=== PATIENT | female | born 1970 ===

== ENCOUNTER 2022-01-02 16:13 | Outpatient (REF) | payer OTHER, SELFPAY ==
[2022-01-02 19:28] LABS: Albumin 4.1 g/dL (3.4-5.0); Anion Gap 8.5 mmol/L (3-11); BUN 16 mg/dL (7-18); CO2 27.5 mmol/L (21.0-32.0); Calcium 9.5 mg/dL (8.5-10.1); Chloride 105 mmol/L (98-107); Estimated GFR 68.63 (mL/min/1.73m2); Glucose 130 mg/dL (74-106); PHOSPHORUS 3.7 mg/dL (2.6-4.7); Potassium 3.7 mmol/L (3.5-5.1); Sodium 141 mmol/L (136-145)
[2022-01-02 19:35] LABS: COMMENT (LAB VIEW ONLY) 16.12 mg/dL
[2022-01-02 19:37] LABS: HCT 40.2 % (36.0-46.0); HGB 13.3 g/dL (11.2-15.7); MCH 29.8 pg (27.0-33.0); MCHC 33.1 % (32.0-36.0); MCV 90 fL (80-95); MPV 11.5 fL (8.0-11.0); Platelet Count 253 10^3/uL (130-400); RBC 4.47 10^6/uL (3.93-5.22); RDW 11.4 % (11.7-14.6); RDW-SD 37.4 fL; WBC 11.57 10^3/uL (4.4-10.8)
[2022-01-02 19:38] LABS: Bilirubin Negative (Negative); Blood Trace-intact (Negative); Clarity Clear (Clear); Glucose Negative (Negative); Ketones Negative (Negative); Leukocyte Esterase Negative (Negative); Nitrite Negative (Negative); PROTEIN < 6.0 mg/dL; Urobilinogen 0.2 EU/dL (Up TO 0.2)
[2022-01-02 19:42] LABS: Bacteria Negative HPF (Negative); Epithelial Cells Negative HPF (Negative); RBC 0-2 HPF (0-2); WBC Negative HPF (0-5)
[2022-01-02 19:43] LABS: C & S Indicated? No; Casts Negative LPF (Negative); Crystals Negative HPF (Negative); Mucus Negative (Negative)
[2022-01-05 09:35] LABS: Parathyroid Hormone,Intact 21 pg/mL (19-88)
== END 2022-01-02 16:14 | disposition home or self-care (01) ==
LOC: LBN 16:13
PROVIDERS: Visit Provider Internal Medicine Nephrology
DX: I10 Essential (primary) hypertension (principal)
CPT/HCPCS: 80069; 85027; 81003; 81015; 82565; 83970; 84156

== ENCOUNTER 2022-04-03 17:34 | Outpatient (REF) | payer BC, SELFPAY ==
[2022-04-03 19:50] LABS: ESR 42 mm/hr (0-20)
[2022-04-03 19:51] LABS: Abs Immature Grans 0.05 10^3/uL (0.0-0.06); Absolute Basophil Count 0.06 10^3/uL (0.0-0.2); Absolute Eosinophil Count 0.18 10^3/uL (0.0-0.7); Absolute Lymphocyte Count 2.83 10^3/uL (1.2-3.4); Absolute Monocyte Count 1.37 10^3/uL (0.1-0.8); Absolute Neutrophil Count 8.41 10^3/uL (1.2-6.7); Basophils % 0.5; Eosinophils % 1.4; HCT 40.4 % (36.0-46.0); HGB 13.5 g/dL (11.2-15.7); Immature Grans % 0.4; Lymphocytes % 21.9; MCHC 33.4 % (32.0-36.0); MCV 90 fL (80-95); MPV 11.2 fL (8.0-11.0); Monocytes % 10.6; Neutrophils % 65.2; Platelet Count 288 10^3/uL (130-400); RDW 11.5 % (11.7-14.6); RDW-SD 37.7 fL
== END 2022-04-03 17:35 | disposition home or self-care (01) ==
LOC: NCHCN 17:34
PROVIDERS: Visit Provider Physician Assistant Medical
DX: G50.1 Atypical facial pain (principal)
CPT/HCPCS: 85652; 85025

== ENCOUNTER 2022-06-17 12:15 | Outpatient (REF) | payer BC, SELFPAY ==
[2022-06-17 15:58] LABS: ESR 21 mm/hr (0-20)
[2022-06-17 15:59] LABS: Abs Immature Grans 0.02 10^3/uL (0.0-0.06); Absolute Basophil Count 0.07 10^3/uL (0.0-0.2); Absolute Eosinophil Count 0.23 10^3/uL (0.0-0.7); Absolute Lymphocyte Count 2.27 10^3/uL (1.2-3.4); Absolute Monocyte Count 0.98 10^3/uL (0.1-0.8); Absolute Neutrophil Count 6.59 10^3/uL (1.2-6.7); Basophils % 0.7; Eosinophils % 2.3; HCT 39.6 % (36.0-46.0); HGB 13.4 g/dL (11.2-15.7); Immature Grans % 0.2; Lymphocytes % 22.3; MCH 30.3 pg (27.0-33.0); MCHC 33.8 % (32.0-36.0); MCV 90 fL (80-95); MPV 11.3 fL (8.0-11.0); Monocytes % 9.6; Neutrophils % 64.9; Platelet Count 252 10^3/uL (130-400); RBC 4.42 10^6/uL (3.93-5.22); RDW 11.7 % (11.7-14.6); RDW-SD 38.2 fL; WBC 10.16 10^3/uL (4.4-10.8)
[2022-06-17 16:32] LABS: Iron 74 ug/dL (50-170); Total Iron Binding Capacity 336 ug/dL (250-450)
[2022-06-17 17:02] LABS: Vitamin D 25 Total 53.1 ng/mL (30-100)
[2022-06-17 17:09] LABS: ALT 33 U/L (14-59); AST 24 U/L (15-37); Alkaline Phosphatase 132 U/L (46-116); Anion Gap 8.7 mmol/L (3-11); BUN 15 mg/dL (7-18); Bilirubin, Total 0.5 mg/dL (0.2-1.0); CO2 27.3 mmol/L (21.0-32.0); CREATININE 0.9 mg/dL (0.55-1.02); Calcium 9.3 mg/dL (8.5-10.1); Chloride 104 mmol/L (98-107); Estimated GFR 77.88 (mL/min/1.73m2); Ferritin 83 ng/mL (8-252); Glucose 95 mg/dL (74-106); Magnesium 2.1 mg/dL (1.8-2.4); Potassium 4.3 mmol/L (3.5-5.1); Sodium 140 mmol/L (136-145); TSH 1.67 uIU/mL (0.36-3.74); Total Protein 8.1 g/dL (6.4-8.2); Vitamin B12 1317 pg/mL (193-986)
[2022-06-17 17:10] LABS: Folate > 20.0 ng/mL (8.6-20.0)
[2022-06-17 17:27] LABS: Creatine Kinase 65 U/L (26-192); FREE T4 1.26 ng/dL (0.76-1.46)
[2022-06-18 20:04] LABS: Rheumatoid Factor <8.6 IU/mL (<12.0)
[2022-06-18 20:20] LABS: T3,Free 4.9 pg/mL (2.8-5.3)
[2022-06-19 09:52] LABS: Hepatitis C Ab w Rflx HCV PCR Negative (Negative)
[2022-06-19 11:24] LABS: Syphilis Serology (RPR) Negative (Negative)
[2022-06-19 14:52] LABS: ANA Interpretation Positive (Negative); ANA Titer Pattern 1:160 Homogeneous
== END 2022-06-17 12:16 | disposition home or self-care (01) ==
LOC: LBN 12:15
PROVIDERS: Visit Provider Physical Medicine & Rehabilitation
DX: M79.10 Myalgia, unspecified site (principal); G47.9 Sleep disorder, unspecified; E61.1 Iron deficiency; E55.9 Vitamin D deficiency, unspecified; M89.9 Disorder of bone, unspecified
CPT/HCPCS: 80053; 82306; 82550; 85652; 86803; 82607; 82728; 82746; 83540; 83550; 83735; 84439; 84443; 84481; 85025; 86038; 86431; 86592

== ENCOUNTER 2022-06-22 01:03 | Outpatient (CLI) | payer BC, SELFPAY ==
--- NOTE | 2022-06-22 | DI.MRI_ITS ---
Exam(s) MR BRAIN WO/W EXAM: MR BRAIN WO/W CLINICAL HISTORY: [facility] BRAIN MRI R90.89 TECHNIQUE: Multiplanar multisequence MRI of the brain was performed. CONTRAST MATERIAL: IV Contrast: 20 mL of Dotarem contrast administered. COMPARISON: MR MRI Brain w/ + w/o Contrast from 05/22/2020 FINDINGS: VENTRICLES AND EXTRA AXIAL SPACES: Normal in size and morphology for the patient's age. HEMORRHAGE: None. CEREBRAL PARENCHYMA: No focus of restricted diffusion to suggest acute infarct. No space-occupying le ana identified. There again seen foci of hyperintense signal seen in the anterior right temporal lob e and in the right deep occipital parietal white matter. Neither of these lesions show enhancement f ollowing contrast administration. No new white matter lesions are identified. MIDLINE SHIFT: None. BRAINSTEM/CEREBELLUM: Normal. CALVARIUM: Normal. ENHANCEMENT: No suspicious enhancement identified. VISUALIZED PARANASAL SINUSES/MASTOIDS: Clear. [place]: Normal flow void. PIT[place]: Unremarkable. OTHER FINDINGS: IMPRESSION: Stable white matter lesions in the right temporal and right deep occipital parietal white matter. No new or enhancing lesions are identified. If there is persistent clinical concern for white matter d isease, follow-up in 6-12 months may be obtained. DATA REPOSITORY:
[2022-06-22] MEDS: Normal Saline Flush 10 ML SYR IVP (10:37)
[2022-06-22] MEDS: Gadoterate meglumine 20 ML VIAL IVP (10:37)
== END 2022-06-22 01:23 ==
PROVIDERS: Visit Provider Physician Assistant Medical
DX: R90.89 Other abnormal findings on diagnostic imaging of central nervous system (principal)
CPT/HCPCS: 70553

== ENCOUNTER 2023-01-08 17:40 | Outpatient (REF) | payer BC, SELFPAY ==
[2023-01-08 14:35] LABS: Abs Immature Grans 0.03 10^3/uL (0.0-0.06); Absolute Basophil Count 0.06 10^3/uL (0.0-0.2); Absolute Lymphocyte Count 2.12 10^3/uL (1.2-3.4); Absolute Monocyte Count 0.87 10^3/uL (0.1-0.8); Absolute Neutrophil Count 5.83 10^3/uL (1.2-6.7); Basophils % 0.7; Eosinophils % 2.2; HCT 40.8 % (36.0-46.0); HGB 14.2 g/dL (11.2-15.7); Immature Grans % 0.3; Lymphocytes % 23.3; MCH 30.8 pg (27.0-33.0); MCHC 34.8 % (32.0-36.0); MCV 89 fL (80-95); MPV 11.5 fL (8.0-11.0); Monocytes % 9.5; Platelet Count 275 10^3/uL (130-400); RBC 4.61 10^6/uL (3.93-5.22); RDW 11.4 % (11.7-14.6); RDW-SD 36.7 fL; WBC 9.11 10^3/uL (4.4-10.8)
[2023-01-08 14:50] LABS: ALT 34 U/L (14-59); AST 21 U/L (15-37); Albumin 4.3 g/dL (3.4-5.0); Alkaline Phosphatase 165 U/L (46-116); Anion Gap 10.1 mmol/L (3-11); BUN 14 mg/dL (7-18); Bilirubin, Total 0.6 mg/dL (0.2-1.0); CO2 26.9 mmol/L (21.0-32.0); CREATININE 0.8 mg/dL (0.55-1.02); Calcium 9.7 mg/dL (8.5-10.1); Calculated LDL 130 mg/dL (<100); Chloride 102 mmol/L (98-107); Cholesterol 216 mg/dL (<200); Estimated GFR 89.15 (mL/min/1.73m2); Glucose 107 mg/dL (74-106); HDL Cholesterol 53 mg/dL (40-60); Potassium 4.4 mmol/L (3.5-5.1); Sodium 139 mmol/L (136-145); TSH (W/Ref FT4) 2.69 uIU/mL (0.36-3.74); Triglyceride 168 mg/dL (<150)
== END 2023-01-08 17:41 | disposition home or self-care (01) ==
LOC: NCHCN 17:40
PROVIDERS: PCP Physician Assistant Medical; Visit Provider Physician Assistant Medical
DX: I10 Essential (primary) hypertension (principal); E87.6 Hypokalemia
CPT/HCPCS: 80053; 80061; 84443; 85025

== ENCOUNTER 2023-03-26 20:58 | Outpatient (REF) | payer BC, SELFPAY ==
[2023-03-26 19:32] LABS: Bilirubin Negative (Negative); Blood Trace-intact (Negative); Clarity Cloudy (Clear); Glucose Negative (Negative); Ketones Negative (Negative); Leukocyte Esterase Trace (Negative); Nitrite Negative (Negative); Specific Gravity >= 1.030 (1.005-1.025); Urobilinogen 0.2 mg/dL (Up to 0.2)
[2023-03-26 19:41] LABS: Bacteria Rare HPF (Negative); C & S Indicated? Yes; Casts Negative LPF (Negative); Crystals Moderate Amorphous HPF (Negative); Epithelial Cells Rare HPF (Negative); Mucus Negative (Negative)
[2023-03-26 20:04] LABS: COMMENT (LAB VIEW ONLY) 177.65 mg/dL; PROTEIN 13.1 mg/dL; Prot/Crea Ur Ratio 0.07
== END 2023-03-26 20:59 | disposition home or self-care (01) ==
LOC: LBN 20:58
PROVIDERS: PCP Physician Assistant Medical; Visit Provider Internal Medicine Nephrology
DX: I10 Essential (primary) hypertension (principal); R82.998 Other abnormal findings in urine
CPT/HCPCS: 81003; 81015; 82565; 84156; 87086

== ENCOUNTER 2023-11-03 18:58 | Outpatient (REF) | payer BC, SELFPAY ==
--- OUTSIDE RECORDS SUMMARY | 2023-11-03 19:04 | XMS_ITS | Data Portability ---
Author Organization [facility] [place] [address] Care Team Providers Care Filter Helper Name Role Phone JAN WARE Primary Care Provider Assessment No assessment recorded. Plan of Treatment Reminders Order Date Submit Date Provider Last Modified By Organization Details Last Modified Time Details Appointments Office Visit 30 2023 04:00P M Not available Not available Not available Lab None recorded. Referral chiroprac tor referral 2023 024 [email or web address] [facility], [address] [place], [address], 11/02/2023 14:08:20 nephrolog ist referral - LAST SEEN 03/19/232023 024 [email or web address] [facility], [address] , [facility] [address], [place], [address], 10/06/2023 14:09:17 Procedures None recorded. Surgeries None recorded. Imaging None recorded. Medication Orders sertralin e 50 mg tablet 2022 023 [email or web address] [facility], [address] [place], [address], 02/24/2023 18:21:14 furosemid e 20 mg tablet 2022 023 [email or web address] [facility], [address] [place], [address], 07/13/2023 13:42:56 Patient TargetsNo targets recorded. Patient Instructions Encounter Date Encounter Id Patient Instructions Last Modified By Organization Details Last Modified Time 03/26/2023 [id number] specimen collection & handling* [email or web address] Not available 03/26/2023 16:25:27 Reason for Referral Processing Lead Referral for Ch ronic kidney disease LAST SEEN 03/19/23 Referring Physician: Jan Ware [facility], Encounter Date: 03/31/2023 Chiropractor Referral for Ne ck pain Referring Physician: Jan Ware [facility], Encounter Date: 03/31/2023 Telesales Advisor Referral for A sthma PATIENT HAS APPT SCHEDULED 10/29/23 Referring Physician: Jan Waer [facility], Encounter Date: 10/06/2023 Results Created Date Observation Date Name Description Value Unit Range Abnormal Flag Note LastModifiedBy Organization Detail LastModifiedTime 03/26/19 24 03/26/2023 URINA LYSIS color Yellow yellow Testi ng perfo rmed on less than 5mL of urine , 3mL used for joleen sis. Not Available [address] [facility] [place], [address] 03/26/2023 19:41:53 03/26/1903/26/2023 URINA LYSIS clarity Cloudy clear Not Available Pedro rankin [address] [facility] [place], [address] 03/26/2023 19:41:53 03/26/1903/26/2023 URINA LYSIS specific gravity >= 1.030 1.005- 1.025 high Not Available [address] [place], [address] 03/26/2023 19:41:53 03/26/19 24 03/26/2023 URINA LYSIS pH 6.0 5-8 normal Not Available Pedro rankin [address] [place], [address] 03/26/2023 19:41:53 03/26/19 24 03/26/2023 URINA LYSIS leukocyte esterase Trace negati ve abnormal Not Available [address] [place], [address] 03/26/2023 19:41:53 03/26/19 24 03/26/2023 URINA LYSIS nitrite Negati ve negati ve Not Available [address] [place], [id number] 03/26/2023 19:41:53 03/26/19 24 03/26/2023 URINA LYSIS protein Negati ve mg/dL negati ve Not Available [address] [place], [id number] 03/26/2023 19:41:53 03/26/19 24 03/26/2023 URINA LYSIS glucose Negati ve mg/dL negati ve Not Available [address] [place], [id number] 03/26/2023 19:41:53 03/26/19 24 03/26/2023 URINA LYSIS ketones Negati ve mg/dL negati ve Not Available [address] [place], [id number] 03/26/2023 19:41:53 03/26/19 24 03/26/2023 URINA LYSIS urobilinogen 0.2 mg/dL up to 0.2 Not Available [address] [place], [id number] 03/26/2023 19:41:53 03/26/19 24 03/26/2023 URINA LYSIS bilirubin Negati ve negati ve Not Available [address] [place], [id number] 03/26/2023 19:41:53 03/26/19 24 03/26/2023 URINA LYSIS blood Trace- intact negati ve abnormal Not Available [address] [place], [id number] 03/26/2023 19:41:53 03/26/19 24 03/26/2023 URINA LYSIS color Yellow yellow Testi ng perfo rmed on less than 5mL of urine , 3mL used for joleen sis. Not Available [address] [place], [id number] 03/26/2023 19:42:49 03/26/19 24 03/26/2023 URINA LYSIS clarity Cloudy clear Not Available Pedro rankin [address] [place], [id number] 03/26/2023 19:42:49 03/26/1903/26/2023 URINA LYSIS specific gravity >= 1.030 1.005- 1.025 high Not Available [address] [place], [address] 03/26/2023 19:42:49 03/26/19 24 03/26/2023 URINA LYSIS pH 6.0 5-8 normal Not Available Pedro rankin [address] [place], [id number] 03/26/2023 19:42:49 03/26/19 24 03/26/2023 URINA LYSIS leukocyte esterase Trace negati ve abnormal Not Available [address] [place], [id number] 03/26/2023 19:42:49 03/26/19 24 03/26/2023 URINA LYSIS nitrite Negati ve negati ve Not Available [address] [place], [address] 03/26/2023 19:42:49 03/26/19 24 03/26/2023 URINA LYSIS protein Negati ve mg/dL negati ve Not Available [address] [place], [address] 03/26/2023 19:42:49 03/26/19 24 03/26/2023 URINA LYSIS glucose Negati ve mg/dL negati ve Not Available [address] [place], [id number] 03/26/2023 19:42:49 03/26/19 24 03/26/2023 URINA LYSIS ketones Negati ve mg/dL negati ve Not Available [address] [place], [id number] 03/26/2023 19:42:49 03/26/19 24 03/26/2023 URINA LYSIS urobilinogen 0.2 mg/dL up to 0.2 Not Available [address] [place], [id number] 03/26/2023 19:42:49 03/26/19 03/26/2023 URINA LYSIS bilirubin Negati ve negati ve Not Available [address] [place], [id number] 03/26/2023 19:42:49 03/26/19 24 03/26/2023 URINA LYSIS blood Trace- intact negati ve abnormal Not Available [address] [place], [id number] 03/26/2023 19:42:49 03/26/19 24 03/26/2023 MICRO SCOPI C FINDI NGS WBC 3-5 hpf 0-5 Not Available Pedro rankin [address] [place], [id number] 03/26/2023 19:42:50 03/26/19 24 03/26/2023 MICRO SCOPI C FINDI NGS RBC 3-5 hpf 0-2 abnormal Not Available [address] [place], [id number] 03/26/2023 19:42:50 03/26/19 24 03/26/2023 MICRO SCOPI C FINDI NGS epithelial cells Rare hpf negati ve Not Available [address] [place], [id number] 03/26/2023 19:42:50 03/26/19 24 03/26/2023 MICRO SCOPI C FINDI NGS bacteria Rare hpf negati ve Not Available [address] [place], [id number] 03/26/2023 19:42:50 03/26/19 24 03/26/2023 MICRO SCOPI C FINDI NGS crystals Modera te Amorph ous hpf negati ve Not Available [address] [place], [id number] 03/26/2023 19:42:50 03/26/19 24 03/26/2023 MICRO SCOPI C FINDI NGS mucus Negati ve negati ve Not Available [address] [place], [id number] 03/26/2023 19:42:50 03/26/19 24 03/26/2023 MICRO SCOPI C FINDI NGS casts Negati ve lpf negati ve Not Available [address] [place], [id number] 03/26/2023 19:42:50 03/26/19 24 03/26/2023 MICRO SCOPI C FINDI NGS C S indicated? Yes Not Available [address] [place], [address] 03/26/2023 19:42:50 03/26/19 24 03/26/2023 PROTE IN/CR EATIN INE URINE protein urine 13.1 mg/dL Not Available [address] [place], [address] 03/26/2023 20:06:58 03/26/19 24 03/26/2023 PROTE IN/CR EATIN INE URINE creatinine urine 177.65 mg/dL Not Available [address] [place], [address] 03/26/2023 20:06:58 03/26/19 24 03/26/2023 PROTE IN/CR EATIN INE URINE prot/crea ur ratio 0.07 Urine Prote in/Cr eatin ine Ratio Refer ence Range : <0.2 mg Prote in/mg Creat inine Not Available [address] [place], [address] 03/26/2023 20:06:58 03/26/19 24 03/28/2023 URINE CULTU RE urine culture Urine Cultu re Proba ble conta minat ed colle ction . APPEA AMOS Mixed Gram Posit skye Julieta APPEA AMOS Mixed Gram Posit skye Julieta COLON Y COUNT Not Available [address] [place], [address] 03/28/2023 09:10:47 03/26/19 24 03/28/2023 URINE CULTU RE urine culture colon ies/m L 10,00 0 - 50,00 0 COLON Y COUNT 10,00 0 - 50,00 0 Day 1 Resul t ISOLA CIERA BELOW Day 2 Resul t ISOLA CIERA BELOW O:GPF M (ORGA NISM ID: 1.1) - GRAM POSIT SKYE JULIETA ,MIXE D Urine Cultu re (ORGA NISM ID: 1.1) - COLON Y COUNT (ORGA NISM ID: 1.1) - 10,00 0 - 50,[address] [facility] [address] [place], [address] 03/28/2023 09:10:47 03/26/19 24 03/26/2023 speci men colle ction & handl ing* Specimen collection and handling performed today: Yes Not Available [facility] [address] [place], [address], 03/26/2023 16:00:13 03/26/19 24 03/26/2023 speci men colle ction & handl ing* Comments: Urine for urinal ysis from outsid e provid er Not Available [facility] [address] [place], [address], 03/26/2023 16:00:13 Result Notes None recorded. Problems Name Problem SNOMED Code Status Onset Date Resolution Date Notes Provider Name and Address Organization Details Recorded Time Actinic keratosi s Active 2021 Problem Code: L57.0; Problem Code Type: ICD-10; Not Available [facility] 3 05:50:44 Peripher al vascular disease 771349112 Active 2021 Problem Code: I73.9; Problem Code Type: ICD-10; Not Available [facility] 3 05:50:44 Seasonal allergic rhinitis 323987025 Active 2021 Problem Code: J30.2; Problem Code Type: ICD-10; Not Available [facility] 3 05:50:44 Trochant carla bursitis of left hip 66929865300 9103 Active 2021 Problem Code: M70.62; Problem Code Type: ICD-10; Not Available [facility] 3 05:50:45 History of infectio us disease 179829601 Active 202105/19/19 23 - Comments only - Jan Ware PA-C - Given patient concerns for reactiva tion of chronic lyme, will initiate refer to Az Zimmerman for manageme nt. In the interim, will trial RXd MELOXICA M 7.5mg BID (h/o hives as ASE NAPROXEN , h/o GI upset with IBUPROFE N). Problem Code: Z86.19; Problem Code Type: ICD-10; Not Available [facility] 3 05:50:45 Lateral epicondy litis of left humerus 89630803190 9100 Active 2021 Problem Code: M77.12; Problem Code Type: ICD-10; Not Available [facility] 3 05:50:45 Uncompli cated moderate persiste nt asthma 402007253 Active 202102/18/20 22 - Comments only - Jan Ware PA-C - Matained on ADVAIR HFA, ?SINGULA IR 5mg QD, and XOPENEX MDI vs via nebulize r PRN as rescue. Problem Code: J45.40; Problem Code Type: ICD-10; Not Available [facility] 3 05:50:45 Tendonit is of right patellar tendon 54973373953 9109 Active 2021 Problem Code: M76.51; Problem Code Type: ICD-10; Not Available [facility] 3 05:50:45 Verruca plantari s 05689491 Active 2021 Problem Code: B07.0; Problem Code Type: ICD-10; Not Available [facility] 3 05:50:46 Iliopsoa s abscess 457953131 Active 2021 Problem Code: K68.12; Problem Code Type: ICD-10; Not Available [facility] 3 05:50:46 Abnormal weight gain 350671697 Active 2021 Problem Code: R63.5; Problem Code Type: ICD-10; Not Available [facility] 3 05:50:46 Hypokale inocencio 95079474 Active 2021 Problem Code: E87.6; Problem Code Type: ICD-10; Not Available [facility] 3 05:50:46 Palpitat ions 09559925 Active 2021 Problem Code: R00.2; Problem Code Type: ICD-10; Not Available [facility] 3 05:50:46 Vitamin D deficien cy 63847881 Active 2021 Problem Code: E55.9; Problem Code Type: ICD-10; Not Available [facility] 3 05:50:46 Screenin g for malignan t neoplasm of colon Active 2021 Problem Code: Z12.11; Problem Code Type: ICD-10; Not Available [facility] 3 05:50:47 Counseli fatemeh Completed 202103/02/2022 02/18/20 22 - Comments only - Jan Ware PA-C - Old records from previous provider reviewed and flagged for chart updating . Problem Code: Z71.89; Problem Code Type: ICD-10; Not Available [facility] 3 05:50:47 Atypical facial pain 77872259 Completed 202204/17/2022 Problem Code: G50.1; Problem Code Type: ICD-10; Not Available [facility] 3 05:50:47 Neck pain 93505188 Active 2022 Problem Code: M54.2; Problem Code Type: ICD-10; Not Available [facility] 3 05:50:47 Imaging of central nervous system abnormal 08928521518 409302 Active 202205/19/19 23 - Comments only - Jan Ware PA-C - Given recent issues with memory, and right sided PRAJAPATI/scalp sensitiv ity, will arrange for repeat MRI @ [facility] at next availabl e. Problem Code: R90.89; Problem Code Type: ICD-10; Not Available [facility] 3 05:50:47 Amnesia 62207058 Completed 202205/29/2022 Problem Code: R41.3; Problem Code Type: ICD-10; Not Available [facility] 3 05:50:48 Insomnia 399497542 Active 202205/19/19 23 - Comments only - Jan Ware PA-C - Patient agrees to trial OTC BENADRYL QHS to target sleep maintena nce issues. Addition ally, in an effort to minimize potentia l for daytime sedation , will switch dosing of ZOLOFT 25mg to PMS. Problem Code: G47.00; Problem Code Type: ICD-10; Not Available [facility] 3 05:50:48 Essentia l hyperten ana 86817544 Active 202102/18/20 22 - Comments only - Jan Ware PA-C - Today's BP stable on BYSTOLIC 2.5mg QD, CLONIDIN E ER 0.1mg in AM and 0.2mg QHS, and EPLERENO NE 25mg QD. Problem Code: I10; Problem Code Type: ICD-10; Not Available [facility] 3 05:51:07 Chalazio n of left eyelid 19202634276 9107 Active 202101/05/20 22 - Comments only - Kaitlynn Sauceda MD - Given the sensatio n of increasi ng irritati on, she has already been trying warm compress es, will trial TobraDex . If not improvin g in the next few days she will let me know. Problem Code: H00.16; Problem Code Type: ICD-10; Not Available [facility] 3 05:51:07 Adjustme nt disorder 58534764 Active 202102/18/20 22 - Comments only - Jan Ware PA-C - Supporti ve listenin g provided today. Patient to continue on ZOLOFT 25mg QD as RXd. She agrees to give some thought towards initiati on of counseli fatemeh supports through [facility] provider in new year. Problem Code: F43.20; Problem Code Type: ICD-10; Not Available [facility] 3 05:51:07 Chronic kidney disease 732474707 Active [address], [place], [address] , [facility]. 4 13:05:33 Asthma 760008610 Active 2023 KAYKAY BLAIR MA [facility], [place] - [facility] 4 14:00:06 Problem Notes None recorded. Procedures Surgical History Date Name Laterality Status Provider Name and Address Organization Details Recorded Time 2 Most Recent Mammogram completed KAYKAY BLAIR MA ramon [facility] 02/24/2023 12:15:34 2 Date of Last Mammogram completed KAYKAY BLAIR MA ramon [facility] 02/24/2023 12:17:07 Imaging Results None recorded. Procedure Notes None recorded. Medical Equipment None Reported. Allergies Allergen ID Allergen Name Allergen Category Reaction Reaction Severity Criticality Documentation Date Start Date Code Code System Note Provider Name and Address Organization Details Recorded Time Biaxin medicatio n other mild Not available 01/08/2023202172 9 RxNorm unkno wn Aller gyRea ction : 'unkn own'; Not Available [facility] 3 16:11:20 23518 Claritin medicatio n hives severe Not available 01/08/20232021 74826 6 RxNorm hives Not Available [facility] 3 16:11:20 47884 Zyrtec medicatio n hives severe Not available 01/08/20232021 33994 RxNorm hives Aller gyCod e: '0004 01800 24'; Aller gyNam e: 'ZYRT EC'; Aller gyCon ceptT ype: 'NDC' ; Not Available [facility] 3 16:11:21 Medications Name Sig Start Date Stop Date Status Note LastModified by Organization Details LastModified Time amoxicill in 500 mg capsule 02/24 completed Not Available Not Available Not Available monteluka st 5 mg chewable tablet Take 1/2 tablet by mouth once a day as needed active Not Available Not Available No t Available clotrimaz ole 10 mg dev Hold 1 dev in mouth five times a day 04/21 completed Not Available Not Available Not Available clonidine HCl 0.1 mg tablet 11/13 completed Not Available Not Available Not Available Medrol (Kemal) 4 mg tablets in a dose pack Take by mouth as directed followin g package instruct ions. Take with food. 04/13 completed Not Available Not Available Not Available nystatin 500,000 unit tablet TAKE TWO TABLETS BY MOUTH THREE TIMES DAILY OR DIRECTED active Not Available Not Available No t Available TobraDex 0.3 %-0.1 % eye ointment Apply to left lower lid 3-4 times a day for 5-7 days 02/16 completed Not Available Not Available Not Available Xopenex 0.63 mg/3 mL solution for nebulizat ion Inhale 1 vial using nebulize r four times a day as needed for asthma exacerba tion 07/12 completed Not Available Not Available Not Available meloxicam 7.5 mg tablet TAKE ONE TABLET BY MOUTH TWICE A DAY 2023 active Not Available Not Available Not Avai lable doxycycli ne monohydra te 50 mg capsule 1 PO BID 07/12 completed Not Available Not Available Not Available Valtrex 1 gram tablet Take 1 tablet by mouth three times a day 02/24 completed Not Available Not Available Not Available sertralin e 25 mg tablet TAKE ONE TABLET BY MOUTH ONCE DAILY 02/24 completed Not Available Not Available Not Available amoxicill in 250 mg capsule Take 1 capsule every other day by oral route with meal(s). active Az Zimmerman MD, Take w/ breakfas t Wed. Wed. Wednesday Not Available Not Available Not Available lisinopri l 5 mg tablet take 1/2 tablet by mouth daily for 2 days. okay to increase to a full tablet daily if at home blood pressure readings still elevated 11/02 completed cramping Not Available Not Available Not Available furosemid e 20 mg tablet Take 1 tablet by mouth once daily active PRN Not Available Not Available No t Available levalbute rol 1.25 mg/3 mL solution for nebulizat ion Use 1 Via Nebulize r 4 times a day as needed 2023 active Not Available Not Available Not Avai lable sertralin e 50 mg tablet Take 1 tablet every day by oral route at bedtime. active Not Available Not Available No t Available eplerenon e 25 mg tablet Take 1 tablet by mouth twice a day 2023 active Not Available Not Available Not Avai lable cyclobenz aprine 5 mg tablet Take 1-2 tablet by mouth twice a day as needed FOR NECK PAIN active Not Available Not Available No t Available levalbute rol HFA 45 mcg/actua tion aerosol inhaler Inhale 1-2 puff using inhaler every four hours as needed for asthma flare active Not Available Not Available No t Available doxycycli ne monohydra te 50mg tid 11/02 completed brand Lupmisael pharmama naged by Az Zimmerman MD Not Available Not Available Not Available Advair HFA 115 mcg-21 mcg/actua tion aerosol inhaler Inhale 1 puff by mouth three times daily as needed 2022 active Not Available Not Available Not Avai lable nebivolol 2.5 mg tablet Take 1 tablet by mouth every night 2023 active Not Available Not Available Not Avai lable Probiotic 100 billion count once a day active Not Available Not Available No t Available clonidine HCl ER 0.1 mg tablet,ex tended release,1 2 hr Take 2 tablet by mouth twice a day 1 in AM, 2 in PM active Not Available Not Available No t Available Spiriva Respimat 2.5 mcg/actua tion solution for inhalatio n active Not Available Not Available Not Available Children' s Benadryl Allergy 12.5 mg chewable tablet Take 1 tablet by mouth once a day as needed active Not Available Not Available No t Available Vitals Date Recorded Body height Body mass index (BMI) Body weight Oxygen saturation Oxygen saturation in Arterial blood by Pulse oximetry Heart rate Systolic blood pressure Diastolic blood pressure Provider Name and Address Organization Details Last Updated DateTime 3 173.710 6 cm 33.7 kg/m2 227461. 39 g 96 % 96 % 90 /min 152 mm[Hg] 80 mm[Hg] KAYKAY BLAIR MA [facility]. 3 17:13:10 Date Recorded Body height Body mass index (BMI) Body weight Oxygen saturation Oxygen saturation in Arterial blood by Pulse oximetry Heart rate Systolic blood pressure Diastolic blood pressure Provider Name and Address Organization Details Last Updated DateTime 4 173.710 6 cm 33.7 kg/m2 440833. 69 g 99 % 99 % 64 /min 138 mm[Hg] 72 mm[Hg] KAYKAY BLAIR MA [facility] 4 17:25:26 Date Recorded Body height Body mass index (BMI) Body weight Heart rate Oxygen saturation Oxygen saturation in Arterial blood by Pulse oximetry Systolic blood pressure Diastolic blood pressure Provider Name and Address Organization Details Last Updated DateTime 4 173.710 6 cm 33.9 kg/m2 038403. 44 g 76 /min 99 % 99 % 122 mm[Hg] 74 mm[Hg] Sudha savage ACID REMOVER [facility] 4 13:39:57 Date Recorded Body height Body mass index (BMI) Body weight Oxygen saturation Oxygen saturation in Arterial blood by Pulse oximetry Heart rate Systolic blood pressure Diastolic blood pressure Provider Name and Address Organization Details Last Updated DateTime 4 175.26 cm 34.6 kg/m2 124940. 71 g 97 % 97 % 84 /min 158 mm[Hg] 81 mm[Hg] LEAH BALL LPN [facility] 4 16:26:30 Social History Question Answer Notes LastModified by Organizat ion Details LastModified Time Tobacco Smoking Status Never Smoker JAMI BISHOP, [facility] 02/24/2023 17:05:57 Do You Or Have You Ever Used Any Other Forms Of Tobacco Or Nicotine? No [email or web address] Information not available 02/24/2023 Sex: Female Functional Status None recorded. Mental Status None recorded. Family History Relationship Description Onset Age of this Age Resolved Age Notes Sister Family history of Hypertension Sister Family history of acute medical disorder ? Celiac artey condition Sister Family history of disorder of lung Father Family history of acute medical disorder CABG/ AVR aroudn age 70 Father Family history of diabetes mellitus type 1 Maternal Grandmother Family history of cancer of colon Mother Family history of malignant neoplasm of lung Mother Family history of heart failure Cardiomyopathy Paternal Grandfather Family history of malignant neoplasm of lung Sister Malignant neoplasm of female breast Medical History No medical history recorded. Gynecological History Statement/Question Response Date of Last Pap Smear Date of Last Mammogram 08/19/2021 Most Recent Mammogram 08/19/2021 Obstetrics History GPAL:G 0 P 0 0 0 0 Past Encounters Encounter ID Performer Location Encounter Start Date Encounter Closed Date Diagnosis/Indication Diagnosis SNOMED-CT Code Diagnosis ICD10 Code [id number] JAN WARE PA-C [facility] [address] [address] 02/24/2023 16:24:31 02/24/2023 18:34:03 Adjustment disorder 49033774 F43.20 Edema 287260721 R60.9 Adult heal th examination 823573363 Z00.00 History of Lyme disease 368581809 Z86.19 Essential hypertension 01034825 I10 N18.9 Asthma 679375351 J45.90 9 [id number] Ubaldo Iglesias MA [address] [address] 03/26/2023 15:43:16 03/26/2023 15:57:52 Adult health examination 853535634 Z00.00 [id number] JAN WARE PA-C [address] [address] 03/31/2023 17:06:19 03/31/2023 18:11:33 Essential hypertension 60013917 I10 Neck pain 09252761 M54.2 Chronic ki dney disease 735940974 N18.9 Adjustment disorder 1722 6007 F43.20 History of infectious disease 982876658 Z86.19 [id number] JAN WARE PA-C [address] [address] 07/13/2023 13:08:01 07/13/2023 15:44:32 Essential hypertension 83493606 I10 [id number] Skylar Miguel [address] [address] 11/03/2023 15:34:17 11/03/2023 17:25:15 Tachycardia 2180678 R00.0 Essential hypertension 00409335 I10 Health Concerns Section Related Observation LastModified by Organization Detai ls LastModified Time None Recorded Concern Status LastModified by Organization Details LastModified Time None Recorded Advance Directives Directive None Recorded Payers Encounter Date Sequence Insurance Name Policy Number Policy Fraga Covered Member ID Fraga Member ID Guarantor Name 02/24/2023 1 [place] [facility] [id number] Sharon Wing [id number] Sharon Wing 03/26/2023 1 [place] [facility] [id number] Sharon Wing [id number] Sharon Wing 03/31/2023 1 [place] [facility] [id number] Sharon Wing [id number] Sharon Wing 07/13/2023 1 [place] [facility] [id number] Sharon Wing [id number] Sharon Wing Notes Date Note Type Note Provider Name and Address Organization Details Recorded Time 02/24/2023 text/html HPI Notes: 52y/o female presenting for annual health maintenance exam. [address], [place], [address], [facility] 05/10/2023 21:08:48 03/31/2023 text/html HPI Notes: 52y/o female presenting for 1m f/u edema and anxiety/depression. On presentation today, Sharon reports extremity edema improved on LASIX. Currently using PRN (required to dose x 2 last week). Still awakening in AMs with some degree of hand swelling, however, ankles/shins OK. Additionally, reports mood improved with increase in ZOLOFT as RXd at time of last month's AE. [address], [place], [address], [facility]. 04/02/2023 13:28:27 07/13/2023 text/html HPI Notes: 52y/o female presenting with c/o elevated BP. Sharon reports that yesterday she found BP readings running atypically high (182/101 at first waking; 179/98 upon arrival at work). Today slightly improved, however, still not at normal levels (159/75 with pulse in 60s; 165/94 after completing a few patient visits at work). Face feels flushed with these elevations. Admits mild PRAJAPATI yesterday and some level of lightheadedness today. No syncope. [address], [place], [address], [facility]. 07/13/2023 16:05:30 OBGyn Episode No OBEpisode recorded.
--- OUTSIDE RECORDS SUMMARY | 2023-11-03 19:04 | XMS_ITS | Referral Summary ---
Author Organization [facility] Address [address] [place] [id number] Care Team Providers Care Machine Design Engineer Name Role Phone Unavailable Primary Care Provider Unavailabl e Social History Tobacco Use Types Packs/Day Years Used Date Smoking Tobacco: Never Assessed Sex and Gender Information Value Date Recorded Sex Assigned at Not on file Gender Identity Not on file Sexual Orientation Not on file Plan of Treatment Not on file Procedures Procedure Name Priority Date/Time Associated Diagnosis Comments HEPATITIS C AB W REFLEX TO HCV RNA BY PCR Today 06/17/2022 10:30 EDT from Last 3 Months or Most Recently Relevant to Health Maintenance Results * HEPATITIS C AB W REFLEX TO HCV RNA BY PCR (06/17/2022 10:30 EDT) Hep C Antibody Negative Negative 06/19/2022 9:47 EDT [facility] Blood VENOUS BLOOD / Unknown 06/17/2022 10:30 EDT 06/18/2022 19:15 EDT Provider Outr Resulting Lab CHEMISTRY & BLOOD GAS ORDERABLES [facility] [address] [place] [address] from Last 3 Months or Most Recently Relevant to Health Maintenance
--- OUTSIDE RECORDS SUMMARY | 2023-11-03 19:04 | XMS_ITS | Clinical Summary ---
Author Organization [facility] Address [address] [place] [address] Care Team Providers Care Cath Lab Name Role Phone Unavailable Primary Care Provider Unavailabl e Social History Tobacco Use Types Packs/Day Years Used Date Smoking Tobacco: Never Assessed Sex and Gender Information Value Date Recorded Sex Assigned at Not on file Gender Identity Not on file Sexual Orientation Not on file Plan of Treatment Health Maintenance Due Date Last Done Comments Hepatitis B Vaccine (1 of 3 - 19+ 3-dose series) 09/01 COVID-19 Vaccine (2022-24 season) 2023 Hepatitis C Screen Completed 06/17/2022 Procedures Procedure Name Priority Date/Time Associated Diagnosis Comments HEPATITIS C AB W REFLEX TO HCV RNA BY PCR Today 06/17/2022 10:30 EDT from Last 3 Months or Most Recently Relevant to Health Maintenance Results * HEPATITIS C AB W REFLEX TO HCV RNA BY PCR (06/17/2022 10:30 EDT) Hep C Antibody Negative Negative 06/19/2022 9:47 EDT [facility] Blood VENOUS BLOOD / Unknown 06/17/2022 10:30 EDT 06/18/2022 19:15 EDT Provider Outr Resulting Lab CHEMISTRY & BLOOD GAS ORDERABLES [facility] [address] [place] [address] from Last 3 Months or Most Recently Relevant to Health Maintenance
--- OUTSIDE RECORDS SUMMARY | 2023-11-03 19:04 | XMS_ITS | Encounter Summary ---
Author Organization [facility] Address [address] [place] [address] Care Team Providers Care Grainer Machine Name Role Phone Unavailable Primary Care Provider Unavailabl e Encounter Details Date Type Department Care Team (Late st Contact Info) Description 01/02/2022 Lab Requisition [facility] Pathology & Laboratory Medicine - [address] [address] Outr Resulting Lab, Provider Social History Tobacco Use Types Packs/Day Years Used Date Smoking Tobacco: Never Assessed Sex and Gender Information Value Date Recorded Sex Assigned at Not on file Gender Identity Not on file Sexual Orientation Not on file documented as of this encounter Plan of Treatment Not on file documented as of this encounter Procedures Procedure Name Priority Date/Time Associated Diagnosis Comments PTH INTACT Routine 01/02/2022 15:31 EDT documented in this encounter Results * PTH INTACT (01/02/2022 15:31 EDT) Intact PTH 21 19 - 88 pg/mL 01/05/2022 9:31 EST [facility] Blood VENOUS BLOOD / Unknown 01/02/2022 15:31 EDT 01/04/2022 17:44 EST Provider Outr Resulting Lab CHEMISTRY & BLOOD GAS ORDERABLES [facility] [address] [place] [address] documented in this encounter Visit Diagnoses Not on filedocumented in this encounter
--- OUTSIDE RECORDS SUMMARY | 2023-11-03 19:04 | XMS_ITS | Encounter Summary ---
Author Organization [facility] Address [address] [place] [address] Care Team Providers Care Tax Examiner Name Role Phone Unavailable Primary Care Provider Unavailabl e Encounter Details Date Type Department Care Team (Late st Contact Info) Description 06/18/2022 Lab Requisition [facility] Pathology & Laboratory Medicine - [facility] [address] [place] [address] Outr Resulting Lab, Provider Social History Tobacco [...] Procedure Name Priority Date/Time Associated Diagnosis Comments HOLD SST Today 06/17/2022 10:30 EDT HOLD SST Today 06/17/2022 10:30 EDT HOLD SST Today 06/17/2022 10:30 EDT SYPHILIS SEROLOGY Today 06/17/2022 10: 30 EDT HEPATITIS C AB W REFLEX TO HCV RNA BY PCR Today 06/17/2022 10:30 EDT RHEUMATOID FACTOR Today 06/17/2022 10: 30 EDT ANTI NUCLEAR AB (LARRY), IFA Today 06/17/2022 10:30 EDT T3 FREE Today 06/17/2022 10:30 EDT documented in this encounter Results * HOLD SST (06/17/2022 10:30 EDT) Hold Hold 06/18/2022 20:16 EDT [facility] Blood VENOUS BLOOD / Unknown 06/17/2022 10:30 EDT 06/18/2022 19:16 EDT Provider Outr Resulting Lab LAB INFO SER VICE AND SUPPORT & PHONE RESULT Performing Organization Address [facility]/ZIP Co de Phone Number [facility] [address] [place] [address] * HOLD SST (06/17/2022 10:30 EDT) Hold Hold 06/18/2022 20:16 EDT [facility] Blood VENOUS BLOOD / Unknown 06/17/2022 10:30 EDT 06/18/2022 19:16 EDT Provider Outr Resulting Lab LAB INFO SER VICE AND SUPPORT & PHONE RESULT Performing Organization Address [facility]/ZIP Co de Phone Number [facility] [address] [place] [id number] * HOLD SST (06/17/2022 10:30 EDT) Hold Hold 06/18/2022 20:16 EDT [facility] Blood VENOUS BLOOD / Unknown 06/17/2022 10:30 EDT 06/18/2022 19:16 EDT Provider Outr Resulting Lab LAB INFO SER VICE AND SUPPORT & PHONE RESULT Performing Organization Address [facility]/ZIP Co de Phone Number [facility] [address] [place] [phone] * T3 FREE (06/17/2022 10:30 EDT) T3, Free 4.9 2.8 - 5.3 pg/mL 06/18/2022 20:16 EDT [facility] Blood VENOUS BLOOD / Unknown 06/17/2022 10:30 EDT 06/18/2022 19:15 EDT Provider Outr Resulting Lab CHEMISTRY & BLOOD GAS ORDERABLES [facility] [address] [place] [address] * SYPHILIS SEROLOGY (06/17/2022 10:30 EDT) Syphilis Serology Negative Negative 06/19/2022 11:20 EDT [facility] Blood VENOUS BLOOD / Unknown 06/17/2022 10:30 EDT 06/18/2022 19:15 EDT Provider Outr Resulting Lab IMMUNOLOGY A ND SEROLOGY ORDERABLES Performing Organization Address [facility] Co de Phone Number [facility] [address] [place] [address] * HEPATITIS C AB W REFLEX TO HCV RNA BY PCR (06/17/2022 10:30 EDT) Hep C Antibody Negative Negative 06/19/2022 9:47 EDT [facility] Blood VENOUS BLOOD / Unknown 06/17/2022 10:30 EDT 06/18/2022 19:15 EDT Provider Outr Resulting Lab CHEMISTRY & BLOOD GAS ORDERABLES Performing Organization Address City/[facility]/ZIP Co de Phone Number [facility] [address] [place] [address] * RHEUMATOID FACTOR (06/17/2022 10:30 EDT) Rheumatoid Factor <8.6 <12.0 IU/mL 06/18/2022 19:59 EDT [facility] Blood VENOUS BLOOD / Unknown 06/17/2022 10:30 EDT 06/18/2022 19:15 EDT Provider Outr Resulting Lab CHEMISTRY & BLOOD GAS ORDERABLES Performing Organization Address City/[facility]/ZIP Co de Phone Number [facility] [address] [place] [address] * (ABNORMAL) ANTI NUCLEAR AB (LARRY), IFA (06/17/2022 10:30 EDT) LARRY Interpretation Positive(A) Negative 06/19/2022 14:49 EDT [facility] Comment: For titers greater than or equal to 1:160 (except the centromere and nucleolar patterns) it is recommended that specific follow-up autoantibody testing ??(such as for dsDNA and Extractable Nuclear Antigens) be performed on all diffuse and/or speckled patterns NOTE: For add-on testing dsDNA is stable for 7 days refrigerated while Extractable Nuclear Antigens are only stable for 48 hours refrigerated. LARRY Titer and Pattern 1 1:160 Homogeneous 06/19/2022 14:49 EDT [facility] Blood VENOUS BLOOD / Unknown 06/17/2022 10:30 EDT 06/18/2022 19:15 EDT Narrative [facility] - 06/19/2022 14:49 EDT Results were obtained with the INOVA NOVA Lite HEp-2 LARRY Kit by indirect immunofluorescence. Provider Outr Resulting Lab IMMUNOLOGY A ND SEROLOGY ORDERABLES [facility] [address] [place] [address] documented in this encounter Visit Diagnoses Not on filedocumented in this encounter
[2023-11-03 20:01] LABS: Abs Immature Grans 0.05 10^3/uL (0.0-0.06); Absolute Basophil Count 0.07 10^3/uL (0.0-0.2); Absolute Eosinophil Count 0.28 10^3/uL (0.0-0.7); Absolute Lymphocyte Count 2.68 10^3/uL (1.2-3.4); Absolute Monocyte Count 1.09 10^3/uL (0.1-0.8); Basophils % 0.6 %; Eosinophils % 2.5 %; HCT 41.9 % (36.0-46.0); HGB 13.6 g/dL (11.2-15.7); Immature Grans % 0.4 %; Lymphocytes % 23.6 %; MCH 29.8 pg (27.0-33.0); MCHC 32.5 % (32.0-36.0); MCV 92 fL (80-95); MPV 11.6 fL (8.0-11.0); Monocytes % 9.6 %; Neutrophils % 63.3 %; Platelet Count 242 10^3/uL (130-400); RBC 4.57 10^6/uL (3.93-5.22); RDW-SD 40.2 fL; WBC 11.37 10^3/uL (4.4-10.8)
== END 2023-11-03 18:59 | disposition home or self-care (01) ==
LOC: NCHCN 18:58
PROVIDERS: PCP Physician Assistant Medical; Visit Provider Physician Assistant Medical
DX: R00.0 Tachycardia, unspecified (principal)
CPT/HCPCS: 80048; 83735; 83880; 85025

== ENCOUNTER 2024-03-21 12:07 | Outpatient (REF) | payer BC, SELFPAY ==
[2024-03-21 16:19] LABS: Abs Immature Grans 0.11 10^3/uL (0.0-0.06); Absolute Basophil Count 0.08 10^3/uL (0.0-0.2); Absolute Eosinophil Count 0.42 10^3/uL (0.0-0.7); Absolute Monocyte Count 1.28 10^3/uL (0.1-0.8); Absolute Neutrophil Count 6.52 10^3/uL (1.2-6.7); Basophils % 0.8 %; Eosinophils % 4.1 %; HCT 46.4 % (36.0-46.0); Immature Grans % 1.1 %; Lymphocytes % 17.6 %; MCH 29.9 pg (27.0-33.0); MCHC 32.3 % (32.0-36.0); MCV 93 fL (80-95); MPV 10.6 fL (8.0-11.0); Monocytes % 12.5 %; Neutrophils % 63.9 %; Platelet Count 265 10^3/uL (130-400); RBC 5.01 10^6/uL (3.93-5.22); RDW 11.9 % (11.7-14.6); RDW-SD 40.7 fL; WBC 10.21 10^3/uL (4.4-10.8)
[2024-03-21 16:45] LABS: Ferritin 130 ng/mL (8-252)
[2024-03-21 16:49] LABS: Iron 127 ug/dL (50-170); Total Iron Binding Capacity 355 ug/dL (250-450); Transferrin Sat 36 % (15-50)
[2024-03-21 17:04] LABS: NT-proBNP 96 pg/mL (<300)
[2024-03-22 10:28] LABS: Lyme Ab w Rflx to Lyme Confirm Negative (Negative)
[2024-03-22 20:55] LABS: Angiotensin Converting Enzyme 26 U/L (16 - 85)
== END 2024-03-21 12:08 | disposition home or self-care (01) ==
LOC: NCHCN 12:07
PROVIDERS: PCP Physician Assistant Medical; Visit Provider Family Medicine
DX: R06.00 Dyspnea, unspecified (principal); A69.20 Lyme disease, unspecified
CPT/HCPCS: 82164; 82728; 83540; 83550; 83880; 85025; 86618

== ENCOUNTER 2024-09-12 16:44 | Outpatient (REF) | payer BC, SELFPAY ==
[2024-09-14 12:15] LABS: Bacterial Vaginosis (BV) Positive (Negative); Candida glabrata Negative (Negative); Candida species group Negative (Negative); Chlamydia Result Negative (Negative); GC Result Negative (Negative)
== END 2024-09-12 16:45 | disposition home or self-care (01) ==
LOC: NCHCN 16:44
PROVIDERS: PCP Physician Assistant Medical; Visit Provider Physician Assistant Medical
DX: R10.2 Pelvic and perineal pain (principal)
CPT/HCPCS: 81513; 87481; 87491; 87591; 87661